=== PATIENT | female | born 2000 | race African-American/Black ===

== ENCOUNTER 2020-01-30 13:07 | Emergency (ER) | payer SELFPAY ==
[~2020-01-30] VITALS: Ht 160 cm; Wt 51.0 kg
[2020-01-30] MEDS ORDERED: LORAZEPAM 2MG/ML CPJ ONE (13:28)
[2020-01-30] MEDS ORDERED: LORAZEPAM 2MG/ML CPJ IM ONE (13:30)
[2020-01-30] MEDS ORDERED: OLANZAPINE 10 MG/VIAL IM ONE (13:30)
[2020-01-30] MEDS ORDERED: SODIUM CHLORIDE 0.9% 1,000 ML IV ONE (14:01)
[2020-01-30 14:54] LABS: BASOPHILS % 0.4 % (0.0-2.0); HEMATOCRIT. 38.1 % (36.0-48.0); LYMPHOCYTES % 10.3 % (20.0-50.0); MEAN CORPUSCULAR HEMOGLOBIN 27.9 pg (28.0-32.0); MONOCYTES % 7.3 % (2.0-8.0); PLATELET 279 x1000/uL (130-400); RED BLOOD CELL COUNT 4.65 mill/uL (4.2-5.4); RED CELL DISTRIBUTION WIDTH 12.8 % (11.6-14.6)
[2020-01-30 15:07] LABS: CHLORIDE 107 mEq/L (98-107)
[2020-01-30 15:11] LABS: HCG SCREEN NEGATIVE
[2020-01-30 15:13] LABS: ETHANOL BLOOD < 10 mg/dL
[2020-01-30 15:23] LABS: CLARITY URINE CLEAR (CLEAR); COLOR URINE YELLOW (YELLOW); KETONES URINE 2+ (NEGATIVE); LEUKOCYTE ESTERASE URINE NEGATIVE (NEGATIVE); NITRITE URINE NEGATIVE (NEGATIVE); OCCULT BLOOD URINE NEGATIVE (NEGATIVE); PH URINE 5.5 (4.5-8.0); PROTEIN URINE TRACE (NEGATIVE); SPECIFIC GRAVITY URINE 1.034 (1.005-1.030)
[2020-01-30 15:36] LABS: *AMPHETAMINES SCREEN URINE NEGATIVE (NEGATIVE); *BARBITURATES SCREEN URINE NEGATIVE (NEGATIVE); *BENZODIAZEPINES SCREEN URINE NEGATIVE (NEGATIVE); *COCAINE SCREEN URINE NEGATIVE (NEGATIVE); METHADONE URINE SCREEN NEGATIVE (NEGATIVE); OPIATES URINE SCREEN NEGATIVE (NEGATIVE); PHENCYCLIDINE URINE SCREEN NEGATIVE (NEGATIVE)
[2020-01-30 15:45] LABS: CANNABINOID URINE SCREEN PRESUMTIVE POSITIVE (NEGATIVE)
[2020-01-30] MEDS ORDERED: DEXT 5%/0.45% NACL KCL 20MEQ/L 1,000 ML IV ONE (15:47)
[2020-01-30] MEDS: POTASSIUM CHLORIDE 20MEQ TABLET SR PO ONE ×2 (17:00→17:03)
[2020-02-01 07:34] LABS: CHLORIDE 107 mEq/L (98-107)
[2020-02-01 12:30] VITALS: BP 141/83
== END 2020-02-01 12:30 | disposition home or self-care (01) ==
LOC: ER 13:14
DX: G92 Toxic encephalopathy (principal); F22 Delusional disorders; F23 Brief psychotic disorder; F12.10 Cannabis abuse, uncomplicated; E87.6 Hypokalemia; Z78.1 Physical restraint status; Z75.1 Person awaiting admission to adequate facility elsewhere
CPT/HCPCS: 36415; 70450; 80048; 80053; 80305; 80307; 80320; 80329; 81003; 81025; 84703; 85025; 96365; 96366; 96372; 99285; J2060; J3490; J7030; G0480